=== PATIENT | male | born 1995 | race Caucasian/White ===

== ENCOUNTER 2022-04-24 15:41 | Emergency (ER) | payer OTHER ==
[~2022-04-24] VITALS: Ht 172.7 cm; Wt 79.8 kg
[2022-04-24] MEDS ORDERED: SULF1TAB48 PO (17:26)
[2022-04-24] MEDS ORDERED: CEPH500C2 PO (17:26)
--- NOTE | 2022-04-24 17:37 | NUR ---
Pt arrived with c/o pain on bilateral buttock, with swelling and redness at the site.
--- NOTE | 2022-04-24 17:41 | NUR ---
Pt discharged to home, in stable condition. Written and verbal after care instructions were given. Pt verbalizes understanding of instructions. Stressed follow up or return to ER for worsening s/s.
== END 2022-04-24 17:40 | disposition home or self-care (01) ==
LOC: ER 15:41
DX: L02.31 Cutaneous abscess of buttock (principal); L03.317 Cellulitis of buttock; Z86.59 Personal history of other mental and behavioral disorders
CPT/HCPCS: A4663